=== PATIENT | female | born 1980 | race Caucasian/White ===

== ENCOUNTER 2021-01-24 14:58 | Emergency (ER) | payer MEDICAID, OTHER ==
[2021-01-24] MEDS ORDERED: Ketorolac 60 MG/2 ML SDV IM ONE (15:46)
--- NOTE | 2021-01-24 15:51 | EDM.PDOC ---
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 vehicle, her RLE slipped sideways on ice on the sidewalk, she put out her arms to regain her balance, did not fall, with her next step she had pain in her L lateral hip no previous hip or back problems, did fx bone in R foot in gymnastics when younger, has had an ankle sprain on R lives with , no children at home no regular meds, takes an allergy pill prn, takes apap prn, took apap 500 mg this AM for slight RUTLEDGE that went away, slept well last night, has been in good health - Related Data Allergies Allergy/AdvReac Type Severity Reaction Status Date / Time No Known Allergies Allergy Verified 01/24/21 15:37 Home Meds: Home Meds NK [No Known Home Meds] 01/24/21 [History] Review of Systems - Review of Systems Review Of Systems: See Below Constitutional: Reports: No Symptoms Eyes: Reports: No Symptoms Ears: Reports: No Symptoms Nose: Reports: No Symptoms Mouth/Throat: Reports: No Symptoms Respiratory: Reports: No Symptoms Cardiovascular: Reports: No Symptoms GI/Abdominal: Reports: No Symptoms Genitourinary: Reports: No Symptoms Musculoskeletal: Reports: Other (L hip pain, no radiation) Skin: Reports: No Symptoms Neurological: Reports: No Symptoms Psychiatric: Reports: No Symptoms ED EXAM, GENERAL - Physical Exam Exam: See Below Exam Limited By: No Limitations General Appearance: Alert, WD/WN, Mild Distress, Other (inc'd BMI ~60, alert, conversant, no cough, nonill) Throat/Mouth: Normal Inspection Head: Atraumatic Neck: Normal Inspection Respiratory/Chest: No Respiratory Distress Cardiovascular: Regular Rate, Rhythm GI/Abdominal: Soft, Non-Tender Back Exam: Normal Inspection, Full Range of Motion, Other (perhaps slight tender at L SIJ, L-spine and iliac crests otherwise NT) Extremities: Normal Inspection, Normal Range of Motion, Non-Tender, No Pedal Edema, Other (there is 1+ tender over the L hip over the joint capsule lateral and anterior, greater trochanter is NT, good ROM through 30 degrees, is able to wt bear, has inc'd pain when taking a step, alignment wnl) Neurological: Alert, Oriented, CN II-XII Intact, Normal Cognition, No Motor/Sensory Deficits Psychiatric: Normal Affect, Normal Mood Skin Exam: Warm, Dry, Intact, Normal Color, No Rash Lymphatic: No Adenopathy Course - Vital Signs Last Recorded V/S: Last Vital Signs Temp 36.8 C 01/24/21 15:13 Pulse 71 01/24/21 15:13 Resp 18 01/24/21 15:13 BP 146/85 H 01/24/21 15:13 Pulse Ox 100 01/24/21 15:13 - Orders/Labs/Meds Orders: Active Orders 24 hr Category Date Time Status Hip Min 2V or 3V w Pelvis Lt [CR] Stat Exams 01/24/21 15:42 Ordered Meds: Medications Discontinued Medications Generic Name Dose Route Start Last Admin Trade Name Brannon PRN Reason Stop Dose Admin Ketorolac Tromethamine 60 mg 01/24/21 15:46 Toradol IM 01/24/21 15:47 ONETIME ONE - Re-Assessments/Exams Free Text/Narrative Re-Assessment/Exam: 01/24/21 15:53 MPMP is neg, pt has used crutches in past with foot fx and ankle sprain, no work until cleared by her physician 01/24/21 16:03 prelim ED read of L hip films shows healthy bone, mild DJD hips b/l Departure - Departure Time of Disposition: 16:05 Disposition: Home, Self-Care 01 Condition: Good Clinical Impression: Sprain of left hip - Discharge Information *PRESCRIPTION DRUG MONITORING PROGRAM REVIEWED*: Yes *COPY OF PRESCRIPTION DRUG MONITORING REPORT IN PATIENT GET: Not Applicable Instructions: Hip Sprain Forms: ED Department Discharge, ED Return to Work/School Form Additional Instructions: No work until cleared by your physician. Take ibuprofen 200 mg 3 tabs and acetaminophen 500 mg 2 tabs 4 times a day for 7 days, longer if needed. Use heat for 10 minutes 4 times a day. See your physician in 4 days for further evaluation and instructions. Call or return to Emergency Department if you are feeling worse. Sepsis Event Note (ED) - Evaluation Sepsis Screening Result: No Definite Risk - Focused Exam Vital Signs: Vital Signs Temp Pulse Resp BP Pulse Ox 01/24/21 15:13 36.8 C 71 18 146/85 H 100 - My Orders Last 24 Hours: My Active Orders 01/24/21 15:42 Hip Min 2V or 3V w Pelvis Lt [CR] Stat - Assessment/Plan Last 24 Hours: My Active Orders 01/24/21 15:42 Hip Min 2V or 3V w Pelvis Lt [CR] Stat
--- NOTE | 2021-01-24 16:37 | CR ---
INDICATION: Slipped on ice, did not fall - subsequent pain left hip. LEFT HIP WITH PELVIS: Two frontal views of the pelvis with frontal and lateral views of the left hip were obtained 01/24/21 - no comparisons. Hip joints appear to be intact with normal joint space and no significant appearing hypertrophic degenerative changes. No fracture or dislocation was identified in the hips or pelvis. Sacroiliac joints appear to be intact. IMPRESSION: No acute fracture or dislocation. MTDD
== END 2021-01-24 16:30 | disposition home or self-care (01) ==
LOC: FB.ED 14:58
DX: S73.102A Unspecified sprain of left hip, initial encounter (principal); X50.9XXA Other and unspecified overexertion or strenuous movements or postures, initial encounter; Y99.0 Civilian activity done for income or pay
CPT/HCPCS: 73502-LT; 96372; 99283; J1885

== ENCOUNTER 2023-02-24 09:11 | Emergency (ER) | payer OTHER ==
[2023-02-24] MEDS ORDERED: Ondansetron 4 MG Tab.DIS PO ONE (09:23)
== END 2023-02-24 10:31 | disposition home or self-care (01) ==
LOC: FB.ED 09:11
DX: S09.90XA Unspecified injury of head, initial encounter (principal); E66.9 Obesity, unspecified; Z68.42 Body mass index [BMI] 45.0-49.9, adult; W00.0XXA Fall on same level due to ice and snow, initial encounter
CPT/HCPCS: 70450; 99283; Q0162